=== PATIENT | male | born 1985 | race Caucasian/White ===

== ENCOUNTER 2019-09-29 03:40 | Emergency (ER) | payer OTHER ==
[~2019-09-29] VITALS: Ht 188 cm; Wt 145.2 kg
[~2019-09-29 03:40] MED LIST: ACETAMINOPHEN-1 EAC1 PO; ADVIL MIGRAINE200 MG PO; CARAFATE 1 GM TA1 GM PO; CHERATUSSIN DA480 ML PO; CLEOCIN HCL300 MG PO; DOXYCYCLINE 10100 MG PO; IBUPROFEN 400400 M1 PO; IBUPROFEN 800800 M1 PO; IMITREX 25 MG T25 MG PO; LIDOCAINE VISC100 M1 SWISH&SPIT; NAPROXEN PO; PENICILLIN V P500 MG PO; PENICILLIN VK500 M1 PO; PEPCID20 MG PO; PERCOCET 5-3251 EACH PO; See comments; TRAMADOL 50 MG50 MG PO; VICODIN 5-5001 EACH PO; ZANTAC 150MG T150 M1 PO
[2019-09-29] MEDS ORDERED: JARDIANCE10 MG PO (04:00)
[2019-09-29] MEDS ORDERED: CALCIUM500 MG PO (04:00)
[2019-09-29] MEDS ORDERED: LISINOPRIL PO (04:02)
[2019-09-29] MEDS ORDERED: EZALLOR SPRINKLE5 MG PO (04:04)
[2019-09-29] MEDS ORDERED: DESYREL150 MG PO (04:04)
[2019-09-29] MEDS ORDERED: HYDRALAZINE 10M10 MG PO (05:10)
[2019-09-29 05:25] VITALS: BP 126/78
[2019-10-02 22:06] LABS: HSV 1 DNA Positive (Negative); HSV 2 DNA Negative (Negative)
== END 2019-09-29 05:36 | disposition home or self-care (01) ==
LOC: M.ERS 03:40
PROVIDERS: Emergency Medicine
DX: K13.0 Diseases of lips (principal); G43.909 Migraine, unspecified, not intractable, without status migrainosus; E11.9 Type 2 diabetes mellitus without complications

== ENCOUNTER 2020-02-28 20:51 | Emergency (ER) | payer OTHER ==
[~2020-02-28] VITALS: Ht 188 cm; Wt 136.1 kg
[~2020-02-28 20:51] MED LIST changes: +CALCIUM500 MG PO; +DESYREL150 MG PO; +EZALLOR SPRINKLE5 MG PO; +HYDRALAZINE 10M10 MG PO; +JARDIANCE10 MG PO; +LISINOPRIL PO
[2020-02-28] MEDS ORDERED: HYDRALAZINE 2525 MG PO (21:06)
[2020-02-28] MEDS ORDERED: IMITREX 25 MG T25 M1 PO (22:30)
[2020-02-28 22:38] VITALS: BP 125/61
== END 2020-02-28 22:38 | disposition home or self-care (01) ==
LOC: M.ERS 20:51
DX: G43.909 Migraine, unspecified, not intractable, without status migrainosus (principal); E11.9 Type 2 diabetes mellitus without complications; Z79.899 Other long term (current) drug therapy; Z20.828 Contact with and (suspected) exposure to other viral communicable diseases

== ENCOUNTER 2020-10-19 21:09 | Emergency (ER) | payer OTHER ==
[~2020-10-19] VITALS: Ht 188 cm; Wt 140.6 kg
[~2020-10-19 21:09] MED LIST changes: +HYDRALAZINE 2525 MG PO; +IMITREX 25 MG T25 M1 PO
[2020-10-19 23:32] VITALS: BP 108/67
== END 2020-10-19 23:33 | disposition home or self-care (01) ==
LOC: M.ERS 21:09
DX: G43.909 Migraine, unspecified, not intractable, without status migrainosus (principal); E11.9 Type 2 diabetes mellitus without complications; Z79.899 Other long term (current) drug therapy